=== PATIENT | female | born 1980 | race Caucasian/White ===

== ENCOUNTER 2017-09-19 16:42 | Inpatient (IN) ==
[2017-09-19] MEDS ORDERED: OXYTOCIN/DEXTROSE 5%-WATER 30 UNITS/500 ML BAG IV ONE ×2 (16:59→23:13)
[2017-09-19] MEDS ORDERED: RINGER'S SOLUTION,LACTATED 1,000 ML IV ONE (16:59)
[2017-09-19] MEDS ORDERED: RINGER'S SOLUTION,LACTATED 1,000 ML IV PRN (16:59)
--- NOTE | 2017-09-19 17:12 | HP ---
Chief Complaint - Chief Complaint Date of Service: 09/19/17 Time of Service: 17:08 Chief Complaint: contractions History of Present Illness: 36 yo at 37 1/7 wks presents to office complaining of increasing pelvic pressure and contractions. This complicated by h/o stillbirth (28wks), recurrent SAB (7), AMA, GDM (oral meds), HSV (no lesions, on prophylaxis), h/o PTD (took progesterone till 37wks, received BTMZ 09/10 and 09/11), and anemia. Rh negative RI GBS negative Medical History (Last Reviewed 09/19/17 @ 13:24 by Alvin Myles) Abnormal Pap smear of cervix Onset Date: ~1998 Advanced maternal age (AMA) in Onset Date: ~2017 Anemia Onset Date: Unknown Anxiety Onset Date: ~2007 Chicken pox Onset Date: Unknown Colitis Onset Date: ~2002 Fibromyalgia Onset Date: ~02/2011 Genital herpes Onset Date: ~1999 Gestational diabetes Onset Date: 07/19/17 Hemorrhoids Onset Date: Unknown History of miscarriage Onset Date: Unknown History of stillbirth Onset Date: ~08/2006 Low back pain Onset Date: Unknown Migraine Onset Date: Unknown depression Onset Date: ~2003 Surgical History: Surgical History (Last Reviewed 09/19/17 @ 13:24 by Alvin Myles) H/O wisdom tooth extraction Onset Date: ~1997 History of appendectomy Onset Date: ~2002 History of dilation and curettage Onset Date: ~1998 Intestinal tumor Onset Date: ~2002 Family History: Family History (Last Reviewed 09/19/17 @ 13:24 by Alvin Myles) Daughter Lupus Daughter Arthritis Father Anxiety Depression Mother Hypertension Grandfather Cancer Diabetes Coronary artery disease Hypertension Grandmother Cancer Grandmother Cancer Social History: Preferred Language Nigerian Review Of Systems (GEN) - Review of Systems Generalized/Overall Review: Present: No Symptoms Reported EENTM: Present: No Symptoms Reported Respiratory: Present: No Symptoms Reported Cardiac: Present: No Symptoms Reported Abdominal: Present: Other - contractions Genitourinary: Present: Other - vaginal pressure Musculoskeletal: Present: Back Pain Neurological: Present: No Symptoms Reported Skin: Present: No Symptoms Reported Endocrine: Present: No Symptoms Reported Allergies/Adverse Reactions: Allergies Allergy/AdvReac Type Severity Reaction Status Date / Time amoxicillin Allergy Verified 09/19/17 16:55 Home Medications: HOME MEDICATIONS Ferrous Sulfate [Iron] 325 mg PO BID 06/20/17 [Last Taken 09/03/17 12:00] Vits96/Iron Fum/Folic [ S] 1 tab PO DAILY 06/20/17 [Last Taken 09/02/17 21:00] metFORMIN HCL [Metformin HCl] 1,000 mg PO HS 08/11/17 [Last Taken 09/02/17 20:00 ] metFORMIN HCL [Metformin HCl] 500 mg PO QAM 08/11/17 [Last Taken 09/03/17 08:00] acetone (urine) test strips See Dose Instructions .ROUTE .MEDSUPPLY #25 ea 08/13 [Last Taken Unknown] blood sugar diagnostic strips See Dose Instructions .ROUTE .MEDSUPPLY #20 ea 04/28 [Last Taken Unknown] blood-glucose meter kit See Dose Instructions .ROUTE .MEDSUPPLY #1 ea 08/13/17 [ Last Taken Unknown] lancets 28 gauge See Dose Instructions .ROUTE .MEDSUPPLY #25 ea 08/13/17 [Last Taken Unknown] acetaminophen 325 mg tablet 650 mg PO Q6H PRN tab 08/16/17 [Last Taken Unknown] valacyclovir 1 gram tablet 1,000 mg PO DAILY 30 Days #30 tab 09/05/17 [Last Taken Unknown] Exam - Exam Vital Signs: Vital Signs - Last Taken Temp 36.2 C 09/19/17 17:05 Pulse 108 H 09/19/17 17:05 Resp 20 09/19/17 17:05 BP 139/90 H 09/19/17 17:05 Pulse Ox 97 09/19/17 17:05 Constitutional: Present: Alert, Oriented x3, Cooperative, Mild distress ENT Exam: Present: hearing grossly normal Respiratory: Present: lungs clear, no respiratory distress Cardiovascular/Chest: Present: normal peripheral pulses, regular rate, rhythm, no edema, no murmur Abdomen: Present: soft, nontender, other - gravid /Rectal: Present: Other - cervix 8/80/-1 Extremity: Present: normal range of motion, non-tender, no pedal edema, no calf tenderness Skin Exam: Present: normal color, warm/dry, no cyanosis Neurologic: Present: alert, normal mood/affect, oriented x 3 Appearance: Present: appropriate appearance Eye contact: Present: cooperative, good eye contact, normal speech Thoughts: Present: normal thought pattern Diagnostic Studies: NST reactive. Assessment/Plan - Assessment/Plan (1) Labor established Assessment: Admit for routine labor managment. Epidural PRN. Anticipate soon. Problem: Acute
--- NOTE | 2017-09-19 18:49 | PN ---
Progess Note - Interim Date: 09/19/17 Time: 18:45 Narrative: 09/19/17 18:46 Patient more uncomfortable with contractions, but not feeling urge to push Vitals stable FHT 140, reassuring, no decels CTX q2-4, occasional couplet CVX /-2, AROM - clear Imp/plan: IUP 37 1/7 wk IUP, labor. Suspect in OP presentation. Will try position changes and add pitocin if needed.
[2017-09-19] MEDS ORDERED: BUPIVACAINE HCL/0.9 % NACL/PF 250 ML EP PRN (21:18)
[2017-09-19] MEDS ORDERED: ONDANSETRON HCL/PF 2 MG/ML VIAL IV PRN (21:18)
[2017-09-19] MEDS ORDERED: NALOXONE HCL 1 MG/1 ML SYRG IV PRN (21:18)
[2017-09-19] MEDS ORDERED: fentaNYL CITRATE/PF 50 MCG/ML AMPUL IT SCH (21:30)
--- NOTE | 2017-09-19 21:41 | ANES ---
Anesthesia Pre Procedure Eval Vitals/Labs: Last Vital Signs Temp 36.2 C 09/19/17 17:05 Pulse 108 H 09/19/17 17:05 Resp 20 09/19/17 17:05 BP 139/90 H 09/19/17 17:05 Pulse Ox 97 09/19/17 17:05 HOME MEDICATIONS Ferrous Sulfate [Iron] 325 mg PO BID 06/20/17 [Last Taken 09/03/17 12:00] Vits96/Iron Fum/Folic [ S] 1 tab PO DAILY 06/20/17 [Last Taken 09/02/17 21:00] metFORMIN HCL [Metformin HCl] 1,000 mg PO HS 08/11/17 [Last Taken 09/02/17 20:00 ] metFORMIN HCL [Metformin HCl] 500 mg PO QAM 08/11/17 [Last Taken 09/03/17 08:00] acetone (urine) test strips See Dose Instructions .ROUTE .MEDSUPPLY #25 ea 08/13 [Last Taken Unknown] blood sugar diagnostic strips See Dose Instructions .ROUTE .MEDSUPPLY #20 ea 04/28 [Last Taken Unknown] blood-glucose meter kit See Dose Instructions .ROUTE .MEDSUPPLY #1 ea 08/13/17 [ Last Taken Unknown] lancets 28 gauge See Dose Instructions .ROUTE .MEDSUPPLY #25 ea 08/13/17 [Last Taken Unknown] acetaminophen 325 mg tablet 650 mg PO Q6H PRN tab 08/16/17 [Last Taken Unknown] valacyclovir 1 gram tablet 1,000 mg PO DAILY 30 Days #30 tab 09/05/17 [Last Taken Unknown] Allergies/Adverse Reactions: Allergies Allergy/AdvReac Type Severity Reaction Status Date / Time amoxicillin Allergy Verified 09/19/17 16:55 - Planned Procedure Planned Procedure: ACTIVE LABOR Medication List Reviewed:: Yes Allergies Verified: Yes Medical History (Last Reviewed 09/19/17 @ 21:39 by Chaz Rod CRNA) Abnormal Pap smear of cervix Onset Date: ~1998 Advanced maternal age (AMA) in Onset Date: ~2017 Anemia Onset Date: Unknown Anxiety Onset Date: ~2007 Chicken pox Onset Date: Unknown Colitis Onset Date: ~2002 Fibromyalgia Onset Date: ~02/2011 Genital herpes Onset Date: ~1999 Gestational diabetes Onset Date: 07/19/17 Hemorrhoids Onset Date: Unknown History of miscarriage Onset Date: Unknown History of stillbirth Onset Date: ~08/2006 Low back pain Onset Date: Unknown Migraine Onset Date: Unknown depression Onset Date: ~2003 Surgical History (Last Reviewed 09/19/17 @ 21:39 by Chaz Rod CRNA) H/O wisdom tooth extraction Onset Date: ~1997 History of appendectomy Onset Date: ~2002 History of dilation and curettage Onset Date: ~1998 Intestinal tumor Onset Date: ~2002 Family History (Last Reviewed 09/19/17 @ 21:39 by Chaz Rod CRNA) Daughter Lupus Daughter Arthritis Father Anxiety Depression Mother Hypertension Grandfather Cancer Diabetes Coronary artery disease Hypertension Grandmother Cancer Grandmother Cancer - Family Anesthesia History Family History:: no untoward family reactions to anesthesia, no familial bleeding tendencies, no family history of clotting disorders, no family history of premature - Airway/Neck/Teeth Within Normal Limits:: Yes Teeth Condition: Intact Neck Exam: full range of motion Mallampatti Score: 2 Thyromental (T-M) distance: > 6 cm Mandibulo Hyoid distance: > 3 cm - Respiratory Respiratory: lungs clear Smoking Status: Never smoker Sleep Apnea currently treated: No Sleep Apnea by current assessment: No - Cardiovascular Patient History - Cardiac/Respiratory: No pertinent hx Tolerates Activity: Fair Heart Sounds: S1 & S2, Regular - Anesthesia Assessment and Plan ASA Class: PS, II, E Anesthesia Type Plan: Epidural - CSE, epidural to start at pt request
--- NOTE | 2017-09-19 22:01 | ANES ---
Post Anesthesia Discharge - Transfer of Care Transfer of Care handoff given to nurse: Yes - Discharge from PACU Discharge from PACU when meets criteria: Yes - Anesthesia Post Op Note Anesthesia Post Op Note: Multiple patient's requesting a labor epidural. Her previous deliveries did not include epidural analgesia however, she has not been progressing past 8 cm dilatation.
--- NOTE | 2017-09-19 22:04 | ANES ---
Anesthesia Procedure Note Procedure Note: ANESTHESIA PROCEDURE NOTE Date of Procedure: 09/19/2017 Time of procedure: 2139. Performed by: SOILA Trinidad CRNA, MSN Coordinator Integrated Marketing: Jia Serrano RN. Preprocedure diagnosis: Active labor, labor pain. Post procedure diagnosis: Same. Procedure:Epidural for labor analgesia L3 4. Indications: Labor pain. Findings: See below. Details of the procedure: The patient was placed on the side of the bed in sitting positionand prepped with DuraPrep then draped in a sterile fashion. Lidocaine 1% was infiltrated to the skin and subcutaneous tissues at the level of the L3 4 interspace. An 18-gauge Touhy needle was used to approach the epidural space with loss of resistance technique. Once loss of resistance was achieved a 27-gauge spinal needle was passed through the epidural needle and CSF was contacted. After CSF returned, 20 mcg of fentanyl was injected in the spinal needle was removed the epidural catheter was then threaded approximately 4 cm in the epidural needle was removed. The catheter was taped in place and after careful aspiration 3 mL of 1.5% lidocaine with 1-200,000 epinephrine was injected without change in maternal heart rate or sensorium. . EBL: Minimal. Fluids: N/A. Specimen: N/A. Post procedure condition: The patient tolerated the procedure well with good relief. No complications were noted. Thank you for this consultation. Chaz Rod CRNA, ARNP, MSN
--- NOTE | 2017-09-19 22:09 | ANES ---
Post Anesthesia Assessment - Vital Signs Vitals: Last Vital Signs Temp 36.2 C 09/19/17 17:05 Pulse 108 H 09/19/17 17:05 Resp 20 09/19/17 17:05 BP 139/90 H 09/19/17 17:05 Pulse Ox 97 09/19/17 17:05 Airway Patency: Normal - Mental Status Level Of Consciousness: Awake, Alert, Appropriate - N/V Assessment Nausea/Vomiting Presence: None Dehydration:: No
[2017-09-19] MEDS ORDERED: HYDROCORTISONE 30 APPL TUBE TP PRN (23:13)
[2017-09-19] MEDS ORDERED: oxyCODONE HCL/ACETAMINOPHEN 1 TAB TABLET PO PRN (23:13)
[2017-09-19] MEDS ORDERED: BISACODYL 10 MG SUPP.RECT RC PRN (23:13)
[2017-09-19] MEDS ORDERED: GLYCERIN/WITCH HAZEL LEAF 40 APPL BOX TP PRN (23:13)
[2017-09-19] MEDS ORDERED: BENZOCAINE/MENTHOL 81 SPRAY CAN TP PRN (23:13)
[2017-09-19] MEDS ORDERED: SENNOSIDES 8.6 MG TABLET PO PRN (23:13)
--- NOTE | 2017-09-19 23:20 | OR ---
Operative Report - Dictated Report Narrative: Spontaneous vaginal delivery of viable male at 2239 on 09/19/2017 with Apgars 9 and 9, weighing 3551 g in BABITA position with tight nuchal cord 1. Cord clamping delayed approximately 1 minute Placenta delivered complete, intact, with three vessel cord Estimated blood loss: less than 50 ml Anesthesia: Intrathecal Lacerations: None
[2017-09-19] MEDS: IBUPROFEN 800 MG TABLET PO PRN (23:36)
[2017-09-20] MEDS: oxyCODONE HCL/ACETAMINOPHEN 1 TAB TABLET PO PRN ×5 (03:36→21:11)
[2017-09-20] MEDS: IBUPROFEN 800 MG TABLET PO PRN ×2 (06:48→16:23)
[2017-09-20] MEDS: DOCUSATE SODIUM 100 MG CAPSULE PO SCH ×2 (11:47→21:11)
--- NOTE | 2017-09-20 20:23 | PN ---
Subjective - Date and Time Seen Date: 09/20/17 Time: 20:22 Objective - Vitals Vitals: Last Vital Signs Temp 36.4 C 09/20/17 14:31 Pulse 90 09/20/17 14:31 Resp 18 09/20/17 14:31 BP 117/82 09/20/17 14:31 Pulse Ox 96 09/20/17 14:31 Patient denies complaints. Breast-feeding Lochia wnl Abdomen - soft, nontender Uterus - firm, at umbilicus - 1 No calf tenderness Impression: day #1 - s/p spontaneous vaginal delivery. Gestational diabetes Plan: Continue routine care. Check blood sugars in a.m. Assessment/Plan - Problems/Diagnosis (1) Labor established Problem: Acute
[2017-09-21] MEDS: oxyCODONE HCL/ACETAMINOPHEN 1 TAB TABLET PO PRN ×2 (00:59→06:33)
[2017-09-21] MEDS: IBUPROFEN 800 MG TABLET PO PRN ×2 (00:59→08:13)
[2017-09-21] MEDS: DOCUSATE SODIUM 100 MG CAPSULE PO SCH (08:13)
[2017-09-21 08:30] VITALS: BP 121/74
--- NOTE | 2017-09-21 10:04 | PN ---
Subjective - Date and Time Seen Date: 09/21/17 Time: 10:03 Objective - Vitals Vitals: Last Vital Signs Temp 36.2 C 09/21/17 08:27 Pulse 73 09/21/17 08:27 Resp 16 09/21/17 08:27 BP 121/74 09/21/17 08:27 Pulse Ox 96 09/21/17 08:27 Patient denies complaints. Lochia wnl Abdomen - soft, nontender Uterus - firm, at umbilicus - 2 No calf tenderness Impression: day #2 - s/p spontaneous vaginal delivery. Gestational diabetes-persistent Plan: Routine discharge instructions. Patient will check a fasting blood sugar in a.m., if still elevated we'll restart metformin 500 mg daily. Assessment/Plan - Problems/Diagnosis (1) Labor established Problem: Acute
== END 2017-09-21 12:00 | disposition home or self-care (01) | DRG 774 ==
LOC: OB 16:42
PROVIDERS: ADMIT Obstetrics & Gynecology; ATTEND Obstetrics & Gynecology
CPT/HCPCS: 59025; 88307

== ENCOUNTER 2020-03-24 21:47 | Inpatient (IN) ==
[2020-03-25] MEDS ORDERED: OXYTOCIN/0.9 % SODIUM CHLORIDE 30 UNITS/500 ML BAG IV ONE ×2 (02:39→12:02)
[2020-03-25] MEDS ORDERED: RINGER'S SOLUTION,LACTATED 1,000 ML IV PRN (02:39)
[2020-03-25] MEDS ORDERED: ONDANSETRON 4 MG TAB.RAPDIS PO PRN (02:39)
[2020-03-25] MEDS ORDERED: RINGER'S SOLUTION,LACTATED 1,000 ML IV ONE (02:39)
[2020-03-25] MEDS ORDERED: BUPIVACAINE HCL/0.9 % NACL/PF 250 ML EP PRN (03:30)
[2020-03-25] MEDS ORDERED: BUPIVACAINE HCL/PF 30 ML VIAL EP SCH (03:30)
[2020-03-25] MEDS ORDERED: ONDANSETRON HCL/PF 2 MG/ML VIAL IV PRN (03:30)
[2020-03-25] MEDS ORDERED: NALOXONE HCL 1 MG/1 ML SYRG IV PRN (03:30)
[2020-03-25] MEDS ORDERED: fentaNYL CITRATE/PF 50 MCG/ML AMPUL IT SCH (03:30)
[2020-03-25] MEDS ORDERED: DEXTROSE 5%-LACTATED RINGERS 1,000 ML IV PRN (04:17)
--- NOTE | 2020-03-25 04:27 | ANES ---
Anesthesia Pre Procedure Eval Vitals/Labs: Last Vital Signs Temp 36.2 C 03/24/20 23:34 Pulse 93 03/24/20 23:34 Resp 18 03/24/20 23:34 BP 121/71 03/24/20 23:34 Pulse Ox 97 03/24/20 23:34 HOME MEDICATIONS Vits96/Iron Fum/Folic [ S] 1 tab PO DAILY 06/20/17 [Last Taken 03/23/20 21:00] acetaminophen 325 mg tablet 650 mg PO Q6H PRN tab 08/27/19 [Last Taken Unknown] doxylamine succinate 25 mg tablet 25 mg PO BID PRN tab 08/27/19 [Last Taken Unknown] pyridoxine (vitamin B6) 250 mg tablet 250 mg PO BID 08/27/19 [Last Taken 03/23/20 21:00] blood-glucose meter See Rx Instructions .ROUTE .MEDSUPPLY #1 ea 09/24/19 [Last Taken Unknown] lancets 30 gauge See Rx Instructions .ROUTE .MEDSUPPLY #100 ea 09/24/19 [Last Taken Unknown] insulin syringe-needle U-100 1 mL 25 gauge x 5/8" See Rx Instructions .ROUTE .MEDSUPPLY #100 ea 09/28/19 [Last Taken Unknown] blood sugar diagnostic See Rx Instructions .ROUTE .COMPLEX #100 strip 01/28/20 [Last Taken Unknown] valacyclovir 500 mg tablet 500 mg PO BID 30 Days #60 tab 03/03/20 [Last Taken 03/24/20 08:00] aspirin 81 mg tablet,delayed release 81 mg PO DAILY 03/14/20 [Last Taken 03/24/20 08:00] ferrous sulfate 325 mg (65 mg iron) tablet 325 mg PO DAILY 03/14/20 [Last Taken 03/24/20 09:00] insulin NPH isoph U-100 human 100 unit/mL subcutaneous suspension See Rx Instructions SUBCUT .COMPLEX ml 03/24/20 [Last Taken 03/24/20 08:00] insulin lispro 100 unit/mL subcutaneous solution See Rx Instructions .ROUTE .COMPLEX ml 03/24/20 [Last Taken 03/24/20 08:00] Allergies/Adverse Reactions: Allergies Allergy/AdvReac Type Severity Reaction Status Date / Time amoxicillin Allergy Verified 03/24/20 09:48 - Planned Procedure Planned Procedure: labor epidural Medication List Reviewed:: Yes Allergies Verified: Yes Medical History (Last Reviewed 03/25/20 @ 04:26 by Sen Taylor CRNA) Anemia (Acute) Onset Date: Unknown with pregnancies Gestational diabetes (Acute) History of recurrent miscarriages (Chronic) History of depression (Chronic) History of stillbirth (Chronic) HSV antigen DIF positive (Chronic) Anxiety (Chronic) Advanced maternal age affecting , antepartum (Chronic) Menorrhagia with irregular cycle (Resolved) cycles 28-50+ days (3 in past 6 months), breast-feeding Dyspareunia in female (Resolved) Intermittent since 04/29, deep ache on left side Dysmenorrhea (Resolved) Since around 04/29. 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 1999 Gestational diabetes Onset Date: 07/19/17 Hemorrhoids Onset Date: Unknown History of miscarriage Onset Date: Unknown 11/1998, 06/1999, 2017x4, 2nd miscarriage during a herpes outbreak History of stillbirth Onset Date: ~08/2006 Low back pain Onset Date: Unknown Migraine Onset Date: Unknown depression Onset Date: ~2003 PMS (premenstrual syndrome) (Resolved) mood swings and irritability Surgical History (Last Reviewed 03/25/20 @ 04:26 by Sen Taylor CRNA) H/O wisdom tooth extraction Onset Date: ~1997 History of appendectomy Onset Date: ~2002 History of dilation and curettage Onset Date: ~1998 1998, 10/2006 -suction curretage 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 Family History (Last Reviewed 03/25/20 @ 04:26 by Sen Taylor CRNA) Daughter Lupus Daughter Arthritis Father Anxiety Depression Mother Hypertension Grandfather , maternal Cancer prostate Diabetes Coronary artery disease Hypertension Grandmother , maternal Cancer lung Grandmother , paternal Cancer lung - Family Anesthesia History Family History:: no untoward family reactions to anesthesia - Airway/Neck/Teeth Within Normal Limits:: Yes Teeth Condition: intact Neck Exam: full range of motion Mallampatti Score: 2 Thyromental (T-M) distance: > 6 cm Mandibulo Hyoid distance: > 3 cm - Respiratory Respiratory Physical: lungs clear Smoking Status: Never smoker Sleep Apnea currently treated: No Sleep Apnea by current assessment: No - Cardiovascular Tolerate Activity: Good Heart Sounds: S1 & S2, Regular - Gastrointestinal NPO since: mn - Anesthesia Assessment and Plan ASA Class: PS, II, E Anesthesia Type Plan: Epidural Planned difficult intubation/equipment available: No
--- NOTE | 2020-03-25 04:28 | ANES ---
Post Anesthesia Discharge - Transfer of Care Transfer of Care handoff given to nurse: Yes - Anesthesia Post Op Note Anesthesia Post Op Note: Care transferred to OB RN
--- NOTE | 2020-03-25 04:28 | ANES ---
Post Anesthesia Assessment - Vital Signs Vitals: Last Vital Signs Temp 36.2 C 03/24/20 23:34 Pulse 93 03/24/20 23:34 Resp 18 03/24/20 23:34 BP 121/71 03/24/20 23:34 Pulse Ox 97 03/24/20 23:34 Airway Patency: Normal - Mental Status Level Of Consciousness: Awake - Pain Level Pain Score: 1 - N/V Assessment Nausea/Vomiting Presence: None Dehydration:: No
--- NOTE | 2020-03-25 04:30 | ANES ---
Anesthesia Procedure Note Procedure Note: ANESTHESIA PROCEDURE NOTE Date of Procedure: 03/25/2020 Time of procedure: 05 21. Performed by: Rudolph Taylor CRNA [employer] Technician: None. Preprocedure diagnosis: Active labor. Post procedure diagnosis: Same. Procedure: Insertion of labor epidural. Indications: The patient is a 39-year-old multigravida female in active labor requesting labor epidural for pain management. Findings: See below. Details of the procedure: The patient was placed in a sitting position. Back was prepped with DuraPrep. Patient was then draped in a sterile fashion. Lidocaine 1% was infiltrated to the skin and subcutaneous tissues at the level of the L3 4 interspace. The epidural space was identified using a 18-gauge Tuohy needle with [id number] technique. 20 mcg fentanyl was given intrathecally using a 27 ga. spinal needle. Epidural catheter was inserted without difficulty. Negative test dose was elicited using 5 mL of 1.5% preservative-free lidocaine plus epinephrine 1 200,000. The epidural catheter was then taped and secured in place. EBL: Minimal. Fluids: N/A. Specimen: N/A. Post procedure condition: The patient tolerated the procedure well. No complications were noted. Thank you for this consultation. Kwon CRNA
--- NOTE | 2020-03-25 09:13 | HP ---
Chief Complaint - Chief Complaint Date of Service: 03/25/20 Time of Service: 08:15 Chief Complaint: painful contractions History of Present Illness: 39 yo at 38 4/7 wks presents to L&D complaining of painful contractions of increased frequency and intensity. This complicated by AMA, anemia, anxiety, GDM on insulin, HSV carrier, h/o recurrent SABx7, h/o 28 wk stillbirth. Rh negative Rubella immune GBS negative Medical History (Last Reviewed 03/25/20 @ 09:08 by Bennie Sandoval DO) Anemia (Acute) Onset Date: Unknown with pregnancies Gestational diabetes (Acute) History of recurrent miscarriages (Chronic) History of depression (Chronic) History of stillbirth (Chronic) HSV antigen DIF positive (Chronic) Anxiety (Chronic) Advanced maternal age affecting , antepartum (Chronic) Menorrhagia with irregular cycle (Resolved) cycles 28-50+ days (3 in past 6 months), breast-feeding Dyspareunia in female (Resolved) Intermittent since 04/29, deep ache on left side Dysmenorrhea (Resolved) Since around 04/29. 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 2000 Gestational diabetes Onset Date: 07/19/17 Hemorrhoids Onset Date: Unknown History of miscarriage Onset Date: Unknown 11/1998, 06/1999, 2017x4, 2nd miscarriage during a herpes outbreak History of stillbirth Onset Date: ~08/2006 Low back pain Onset Date: Unknown Migraine Onset Date: Unknown depression Onset Date: ~2003 PMS (premenstrual syndrome) (Resolved) mood swings and irritability Surgical History: Surgical History (Last Reviewed 03/25/20 @ 04:26 by Sen Taylor CRNA) H/O wisdom tooth extraction Onset Date: ~1997 History of appendectomy Onset Date: ~2002 History of dilation and curettage Onset Date: ~1998 1998, 10/2006 -suction curretage 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 Family History: Family History (Last Reviewed 03/25/20 @ 04:26 by Sen Taylor CRNA) Daughter Lupus Daughter Arthritis Father Anxiety Depression Mother Hypertension Grandfather , maternal Cancer prostate Diabetes Coronary artery disease Hypertension Grandmother , maternal Cancer lung Grandmother , paternal Cancer lung Social History: (Last Updated 03/24/20 @ 11:58 by Bennie Sandoval DO) Social History: adopted: No Marital status: household members: spouse number of children: 6 current occupational status: unemployed current occupation: homemaker current occupational exposures/hazards: No Highest level of school completed/degree received: Associate degree: academi Sexually Active: Yes Service: No Tobacco: Smoking Status: Never smoker Alcohol: alcohol intake: former Substance Use: substance use type: does not use Dietary Habits: caffeine: Yes caffeine comment: 1/2 can pop daily Type: carbonated beverages Exercise: Physical activity type: walking frequency: daily Isa/Buddhist: agree to transfusion: Yes Review Of Systems (GEN) - Review of Systems Generalized/Overall Review: Present: No Symptoms Reported EENTM: Present: No Symptoms Reported Respiratory: Present: No Symptoms Reported Cardiac: Present: No Symptoms Reported Abdominal: Present: Other - contractions Genitourinary: Present: No Symptoms Reported Musculoskeletal: Present: No Symptoms Reported Neurological: Present: Anxiety Skin: Present: No Symptoms Reported Endocrine: Present: No Symptoms Reported Allergies/Adverse Reactions: Allergies Allergy/AdvReac Type Severity Reaction Status Date / Time amoxicillin Allergy Verified 03/24/20 09:48 Home Medications: HOME MEDICATIONS Vits96/Iron Fum/Folic [ S] 1 tab PO DAILY 06/20/17 [Last Taken 03/23/20 21:00] acetaminophen 325 mg tablet 650 mg PO Q6H PRN tab 08/27/19 [Last Taken Unknown] doxylamine succinate 25 mg tablet 25 mg PO BID PRN tab 08/27/19 [Last Taken Unknown] pyridoxine (vitamin B6) 250 mg tablet 250 mg PO BID 08/27/19 [Last Taken 03/23/20 21:00] blood-glucose meter See Rx Instructions .ROUTE .MEDSUPPLY #1 ea 09/24/19 [Last Taken Unknown] lancets 30 gauge See Rx Instructions .ROUTE .MEDSUPPLY #100 ea 09/24/19 [Last Taken Unknown] insulin syringe-needle U-100 1 mL 25 gauge x 5/8" See Rx Instructions .ROUTE .MEDSUPPLY #100 ea 09/28/19 [Last Taken Unknown] blood sugar diagnostic See Rx Instructions .ROUTE .COMPLEX #100 strip 01/28/20 [Last Taken Unknown] valacyclovir 500 mg tablet 500 mg PO BID 30 Days #60 tab 03/03/20 [Last Taken 03/24/20 08:00] aspirin 81 mg tablet,delayed release 81 mg PO DAILY 03/14/20 [Last Taken 03/24/20 08:00] ferrous sulfate 325 mg (65 mg iron) tablet 325 mg PO DAILY 03/14/20 [Last Taken 03/24/20 09:00] insulin NPH isoph U-100 human 100 unit/mL subcutaneous suspension See Rx Instructions SUBCUT .COMPLEX ml 03/24/20 [Last Taken 03/24/20 08:00] insulin lispro 100 unit/mL subcutaneous solution See Rx Instructions .ROUTE .COMPLEX ml 03/24/20 [Last Taken 03/24/20 08:00] Exam - Exam Vital Signs: Vital Signs - Last Taken Temp 36.2 C 03/24/20 23:34 Pulse 93 03/24/20 23:34 Resp 18 03/24/20 23:34 BP 121/71 03/24/20 23:34 Pulse Ox 97 03/24/20 23:34 Constitutional: Present: Alert, Oriented x3, Cooperative ENT Exam: Present: hearing grossly normal Neck: Present: non-tender, supple, trachea midline. Absent: thyromegaly Back Exam: Present: no CVA tenderness Breasts: Present: Exam deferred Respiratory: Present: lungs clear, no respiratory distress Cardiovascular/Chest: Present: normal peripheral pulses, regular rate, rhythm, no edema Abdomen: Present: nontender, no rebound tenderness, other - Gravid Extremity: Present: no pedal edema, no calf tenderness Skin Exam: Present: normal color, warm/dry, no cyanosis Neurologic: Present: alert, normal mood/affect, oriented x 3 Appearance: Present: appropriate appearance, appropriate insight Eye contact: Present: cooperative, good eye contact Thoughts: Present: normal thought pattern, normal mood /affect - mild anxiety
--- NOTE | 2020-03-25 11:51 | OR ---
Operative Report - Dictated Report Narrative: Spontaneous vaginal delivery of vigorously crying viable female at 1134 on 03/25/2020 with Apgars 9 and 9, weighing 3185 g in ADRIENNE position. Cord clamping delayed approximately 1 minute Placenta delivered complete, intact, with three vessel cord Estimated blood loss: Less than 50 ml Anesthesia: Epidural Lacerations: None History for MU History for MU Definition: * The number of deliveries resulting in a live the patient experienced prior to current hospitalization * The previous delivery of live twins or any live multiple gestation is considered one live event. *If primagravida or nulliparous is documented select zero for the number of previous live births. Live Events: Live Events: 7
--- NOTE | 2020-03-25 11:54 | HP ---
Chief Complaint - Chief Complaint Date of Service: 03/25/20 Time of Service: 11:52 Chief Complaint: ADDENDUM History of Present Illness: 39 yo at 38 4/7 wks presents to L&D complaining of painful contractions of increased frequency and intensity. This complicated by AMA, anemia, anxiety, GDM on insulin, HSV carrier, h/o recurrent SABx7, h/o 28 wk stillbirth. Rh negative Rubella immune GBS negative Medical History (Last Reviewed 03/25/20 @ 09:08 by Bennie Sandoval DO) Anemia (Acute) Onset Date: Unknown with pregnancies Gestational diabetes (Acute) History of recurrent miscarriages (Chronic) History of depression (Chronic) History of stillbirth (Chronic) HSV antigen DIF positive (Chronic) Anxiety (Chronic) Advanced maternal age affecting , antepartum (Chronic) Menorrhagia with irregular cycle (Resolved) cycles 28-50+ days (3 in past 6 months), breast-feeding Dyspareunia in female (Resolved) Intermittent since 04/29, deep ache on left side Dysmenorrhea (Resolved) Since around 04/29. 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 2000 Gestational diabetes Onset Date: 07/19/17 Hemorrhoids Onset Date: Unknown History of miscarriage Onset Date: Unknown 11/1998, 06/1999, 2017x4, 2nd miscarriage during a herpes outbreak History of stillbirth Onset Date: ~08/2006 Low back pain Onset Date: Unknown Migraine Onset Date: Unknown depression Onset Date: ~2003 PMS (premenstrual syndrome) (Resolved) mood swings and irritability Surgical History: Surgical History (Last Reviewed 03/25/20 @ 04:26 by Sen Taylor CRNA) H/O wisdom tooth extraction Onset Date: ~1997 History of appendectomy Onset Date: ~2002 History of dilation and curettage Onset Date: ~1998 1998, 10/2006 -suction curretage 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 Family History: Family History (Last Reviewed 03/25/20 @ 04:26 by Sen Taylor CRNA) Daughter Lupus Daughter Arthritis Father Anxiety Depression Mother Hypertension Grandfather , maternal Cancer prostate Diabetes Coronary artery disease Hypertension Grandmother , maternal Cancer lung Grandmother , paternal Cancer lung Social History: (Last Updated 03/24/20 @ 11:58 by Bennie Sandoval DO) Social History: adopted: No Marital status: household members: spouse number of children: 6 current occupational status: unemployed current occupation: homemaker current occupational exposures/hazards: No Highest level of school completed/degree received: Associate degree: academi Sexually Active: Yes Service: No Tobacco: Smoking Status: Never smoker Alcohol: alcohol intake: former Substance Use: substance use type: does not use Dietary Habits: caffeine: Yes caffeine comment: 1/2 can pop daily Type: carbonated beverages Exercise: Physical activity type: walking frequency: daily Isa/Catholic: agree to transfusion: Yes Allergies/Adverse Reactions: Allergies Allergy/AdvReac Type Severity Reaction Status Date / Time amoxicillin Allergy Verified 03/24/20 09:48 Home Medications: HOME MEDICATIONS Vits96/Iron Fum/Folic [ S] 1 tab PO DAILY 06/20/17 [Last Taken 03/23/20 21:00] acetaminophen 325 mg tablet 650 mg PO Q6H PRN tab 08/27/19 [Last Taken Unknown] doxylamine succinate 25 mg tablet 25 mg PO BID PRN tab 08/27/19 [Last Taken Unknown] pyridoxine (vitamin B6) 250 mg tablet 250 mg PO BID 08/27/19 [Last Taken 03/23/20 21:00] blood-glucose meter See Rx Instructions .ROUTE .MEDSUPPLY #1 ea 09/24/19 [Last Taken Unknown] lancets 30 gauge See Rx Instructions .ROUTE .MEDSUPPLY #100 ea 09/24/19 [Last Taken Unknown] insulin syringe-needle U-100 1 mL 25 gauge x 5/8" See Rx Instructions .ROUTE .MEDSUPPLY #100 ea 09/28/19 [Last Taken Unknown] blood sugar diagnostic See Rx Instructions .ROUTE .COMPLEX #100 strip 01/28/20 [Last Taken Unknown] valacyclovir 500 mg tablet 500 mg PO BID 30 Days #60 tab 03/03/20 [Last Taken 03/24/20 08:00] aspirin 81 mg tablet,delayed release 81 mg PO DAILY 03/14/20 [Last Taken 03/24/20 08:00] ferrous sulfate 325 mg (65 mg iron) tablet 325 mg PO DAILY 03/14/20 [Last Taken 03/24/20 09:00] insulin NPH isoph U-100 human 100 unit/mL subcutaneous suspension See Rx Instructions SUBCUT .COMPLEX ml 03/24/20 [Last Taken 03/24/20 08:00] insulin lispro 100 unit/mL subcutaneous solution See Rx Instructions .ROUTE .COMPLEX ml 03/24/20 [Last Taken 03/24/20 08:00] Exam - Exam Vital Signs: Vital Signs - Last Taken Temp 36.2 C 03/24/20 23:34 Pulse 93 03/24/20 23:34 Resp 18 03/24/20 23:34 BP 121/71 03/24/20 23:34 Pulse Ox 97 03/24/20 23:34 Assessment/Plan - Assessment/Plan (1) Labor established Assessment: Admit for routine management of labor. Epidural and pitocin PRN. Problem: Acute (2) Anemia Problem: Chronic Qualifiers: Anemia type: iron deficiency Iron deficiency anemia type: inadequate dietary iron intake Qualified Code(s): D50.8 - Other iron deficiency anemias (3) Gestational diabetes Problem: Acute Qualifiers: Gestational diabetes mellitus control: insulin-controlled Trimester: third trimester Qualified Code(s): O24.414 - Gestational diabetes mellitus in , insulin controlled (4) History of recurrent miscarriages Problem: Chronic (5) History of depression Problem: Chronic (6) History of stillbirth Problem: Chronic (7) Hx of migraines Problem: Chronic (8) HSV antigen DIF positive Problem: Chronic (9) Anxiety Problem: Chronic (10) Advanced maternal age affecting , antepartum Problem: Chronic
[2020-03-25] MEDS ORDERED: SENNOSIDES 8.6 MG TABLET PO PRN (12:02)
[2020-03-25] MEDS ORDERED: GLYCERIN/WITCH HAZEL LEAF 40 APPL BOX TP PRN (12:02)
[2020-03-25] MEDS ORDERED: IBUPROFEN 800 MG TABLET PO PRN (12:02)
[2020-03-25] MEDS ORDERED: HYDROCORTISONE 30 APPL TUBE TP PRN (12:02)
[2020-03-25] MEDS ORDERED: BENZOCAINE/MENTHOL 81 SPRAY CAN TP PRN (12:02)
[2020-03-25] MEDS ORDERED: BISACODYL 10 MG SUPP.RECT RC PRN (12:02)
[2020-03-25] MEDS: IBUPROFEN 800 MG TABLET PO PRN ×2 (12:52→19:18)
[2020-03-25] MEDS: oxyCODONE HCL/ACETAMINOPHEN 1 TAB TABLET PO PRN ×3 (14:55→22:20)
[2020-03-25] MEDS: DOCUSATE SODIUM 100 MG CAPSULE PO SCH (22:18)
[2020-03-26] MEDS: oxyCODONE HCL/ACETAMINOPHEN 1 TAB TABLET PO PRN ×2 (03:38→10:12)
[2020-03-26] MEDS: IBUPROFEN 800 MG TABLET PO PRN (03:38)
--- NOTE | 2020-03-26 04:04 | PN ---
Subjective - Date and Time Seen Date: 03/26/20 Time: 04:02 Objective - Vitals Vitals: Last Vital Signs Temp 36.2 C 03/26/20 01:40 Pulse 84 03/26/20 01:40 Resp 18 03/26/20 01:40 BP 123/67 03/26/20 01:40 Pulse Ox 97 03/26/20 01:40 Patient denies complaints. Breast-feeding Lochia wnl abdomen - soft, nontender Uterus -firm, at umbilicus - 1 No calf tenderness Impression: day #1 - s/p spontaneous vaginal delivery. Gestational diabetes-stable. Patient desires early discharge. Plan: Continue routine care. Routine discharge instructions given to patient. She will check her fasting and 1 hour postprandial blood sugar the day before her appointment. We will see patient back in the office in 3 weeks due to history of depression. Cauti Physician Documentation - Urinary Catheter Management Urethral (Ortega) Date of Insertion: 03/25/20 Time of Insertion: 05:00 Date of Removal: 03/25/20 Time of Removal: 11:25 Assessment/Plan - Problems/Diagnosis (1) Labor established Problem: Acute (2) Anemia Problem: Chronic Qualifiers: Anemia type: iron deficiency Iron deficiency anemia type: inadequate dietary iron intake Qualified Code(s): D50.8 - Other iron deficiency anemias (3) Gestational diabetes Problem: Acute Qualifiers: Gestational diabetes mellitus control: insulin-controlled Trimester: third trimester Qualified Code(s): O24.414 - Gestational diabetes mellitus in , insulin controlled (4) History of recurrent miscarriages Problem: Chronic (5) History of depression Problem: Chronic (6) History of stillbirth Problem: Chronic (7) Hx of migraines Problem: Chronic (8) HSV antigen DIF positive Problem: Chronic (9) Anxiety Problem: Chronic (10) Advanced maternal age affecting , antepartum Problem: Chronic
--- NOTE | 2020-03-26 04:16 | DS ---
OB Discharge Summary (1) Anemia Status: Chronic Qualifiers: Anemia type: iron deficiency Iron deficiency anemia type: inadequate dietary iron intake Qualified Code(s): D50.8 - Other iron deficiency anemias (2) Gestational diabetes Status: Resolved Qualifiers: Gestational diabetes mellitus control: insulin-controlled Trimester: third trimester Qualified Code(s): O24.414 - Gestational diabetes mellitus in , insulin controlled (3) History of recurrent miscarriages Status: Chronic (4) History of depression Status: Chronic (5) History of stillbirth Status: Chronic (6) Hx of migraines Status: Chronic (7) HSV antigen DIF positive Status: Chronic (8) Anxiety Status: Chronic (9) Advanced maternal age affecting , antepartum Status: Chronic (10) Labor established Status: Resolved (11) Vaginal delivery Status: Resolved (12) Grand multiparity Status: Chronic Delivery Date: 03/25/20 Delivery Time: 11:34 :: 15 Para:: 8 Gestational weeks:: 38 Gestational days:: 4 Intrapartum Procedures: Spontaneous Vaginal Delivery, Anesthesia - Epidural Procedures: None /OP Complications: No Complications Discharge Diagnosis: Term -Delivered - Discharge Information Date of Discharge: 03/26/20 Hospital Course: 39-year old 15 now para 6-2-7-7 admitted at 38 weeks 4 days for labor which went uneventfully. Her course was uneventful as well. Discharge Location: Home Disposition: Home self-care Condition: Good Activity on Discharge:: Activity as tolerated, Pelvic Rest Discharge Diet: General/regular food Additional Patient Instructions (free text): Amy, your follow up appointment is April 19 at 2:[address] Sandoval. Please check a fasting and 1 hour after breakfast blood sugar the day before your appointment. Baby girls follow up is Saturday, at 9:[address] Coy at [facility]. Complete Home Medications List: Complete Home Medication List: Vits96/Iron Fum/Folic [ S] 1 tab PO DAILY 06/20/17 acetaminophen 325 mg tablet 650 mg PO Q6H PRN tab 08/27/19 ferrous sulfate 325 mg (65 mg iron) tablet 325 mg PO DAILY 03/14/20 Ibuprofen [Motrin] 200 - 800 mg PO Q6H PRN #100 tab 03/26/20 - Plan Discharge to:: Home Follow up in office in:: 3-4 weeks - [place] Information Weight (Grams): 3,185 Sex: Female Score 1 min: 9 Score 5 min: 9 Infant Complications: None
[2020-03-26] MEDS ORDERED: FERROUS SULFATE 325 MG TABLET PO SCH (09:00)
[2020-03-26] MEDS ORDERED: PRENATAL VITS96/IRON FUM/FOLIC 1 TAB TABLET PO SCH (09:00)
[2020-03-26] MEDS: DOCUSATE SODIUM 100 MG CAPSULE PO SCH (10:12)
[2020-03-26 14:27] VITALS: BP 119/72
== END 2020-03-26 13:00 | disposition home or self-care (01) | DRG 806 ==
LOC: OBCLINIC 21:47 → OB 03-25 02:19
PROVIDERS: ADMIT Obstetrics & Gynecology; ATTEND Obstetrics & Gynecology